=== PATIENT | male | born 1935 | race Caucasian/White ===

== ENCOUNTER → 2018-05-15 | Outpatient (CLI) | payer MEDICARE, BC ==
[2018-05-15 11:22] LABS: Source, Urine Clean Catch
[2018-05-15 12:49] LABS: Bilirubin, Urine Neg (Neg); Blood, Urine Neg (Neg); Glucose Qualitative, Urine Neg (Neg); Ketones, Urine 1+ (Neg); Leukocyte Esterase, Urine Neg (Neg); Nitrite, Urine Neg (Neg); Protein, Urine Neg (Neg); Urobilinogen, Urine NORM (Normal)
[2018-05-15 13:16] LABS: Appearance, Urine Clear (Clear); Color, Urine Yellow (P-Yellow)
== END | disposition home or self-care (01) ==
LOC: LAB SHORT 11:18 → LAB 11:18
PROVIDERS: Internal Medicine
DX: R35.0 Frequency of micturition (principal)
CPT/HCPCS: 81003

== ENCOUNTER → 2020-09-29 | Outpatient (CLI) | payer MEDICARE, BC ==
[2020-10-04 13:11] LABS: M-SPIKE, % Comment: % (Not Observed); PROTEIN,TOTAL,URINE 7.5 mg/dL (Not Estab.)
== END | disposition home or self-care (01) ==
LOC: LAB SHORT 11:24 → LAB 11:24 → LAB FUT 09-20 13:50
PROVIDERS: Internal Medicine
DX: R79.89 Other specified abnormal findings of blood chemistry (principal)
CPT/HCPCS: 81050; 84166; 86335

== ENCOUNTER → 2021-06-07 | Outpatient (CLI) | payer MEDICARE, BC | END | disposition home or self-care (01) | LOC: LAB SHORT 14:57 | DX: C44.311 Basal cell carcinoma of skin of nose (principal) | CPT/HCPCS: 88305 ==

== ENCOUNTER → 2022-09-19 | Outpatient (CLI) | payer MEDICARE, BC | LOC: LAB SHORT 08:14 → PLD 08:14 | DX: D48.5 Neoplasm of uncertain behavior of skin (principal); L98.9 Disorder of the skin and subcutaneous tissue, unspecified | CPT/HCPCS: 88305; 88312 ==